=== PATIENT | male | born 1990 | race Two or more races ===

== ENCOUNTER 2019-10-10 15:10 | Emergency (ER) | payer MEDICAID, OTHER ==
[~2019-10-10] VITALS: Ht 165.1 cm; Wt 77.1 kg
[2019-10-10 15:21] VITALS: BP 123/79
[2019-10-10] MEDS ORDERED: KETOROLAC TROMETH 60MG/2ML VIAL IM ONE (17:00)
== END 2019-10-10 17:30 | disposition home or self-care (01) ==
LOC: ER 15:10
DX: S02.609A Fracture of mandible, unspecified, initial encounter for closed fracture (principal); F17.210 Nicotine dependence, cigarettes, uncomplicated; W51.XXXA Accidental striking against or bumped into by another person, initial encounter; Y93.89 Activity, other specified; Y92.89 Other specified places as the place of occurrence of the external cause; Y99.8 Other external cause status
CPT/HCPCS: 70110; 96372; 99283; J1885